=== PATIENT | male | born 1955 | race Caucasian/White ===

== ENCOUNTER 2016-08-11 18:09 | Emergency (ER) | payer SELFPAY ==
[~2016-08-11] VITALS: Ht 167.6 cm; Wt 72.0 kg
[2016-08-11 18:19] VITALS: Ht 167.6 cm; Wt 72.0 kg
[2016-08-11] MEDS ORDERED: ACETAMINOPHEN 500 MG TAB PO STA (19:09)
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
[2016-08-11] MEDS ORDERED: IBUP-1542 PO (20:16)
[2016-08-11] MEDS ORDERED: ACET500C5 PO (20:16)
[2016-08-11 20:23] VITALS: BP 166/90; RESP 18
== END 2016-08-11 20:39 | disposition home or self-care (01) ==
LOC: FTE 18:09
DX: S01.01XA Laceration without foreign body of scalp, initial encounter (principal); R40.2252 Coma scale, best verbal response, oriented, at arrival to emergency department; R07.9 Chest pain, unspecified; R40.2142 Coma scale, eyes open, spontaneous, at arrival to emergency department; R40.2362 Coma scale, best motor response, obeys commands, at arrival to emergency department; V49.40XA Driver injured in collision with unspecified motor vehicles in traffic accident, initial encounter
CPT/HCPCS: 70450; 70486; 71010; 72125

== ENCOUNTER 2016-08-18 12:33 | Emergency (ER) | payer SELFPAY ==
[~2016-08-18] VITALS: Ht 162.6 cm; Wt 72.0 kg
[~2016-08-18 12:33] MED LIST: ACET500C5 PO; IBUP-1542 PO
[2016-08-18 12:37] VITALS: Ht 162.6 cm; Wt 72.0 kg
[2016-08-18] MEDS ORDERED: HYD25 PO (14:50)
[2016-08-18] MEDS ORDERED: HYDROCHLOROTHIAZIDE 12.5 MG CAP PO ONE (15:00)
[2016-08-18 15:16] VITALS: BP 150/74; PULSE 89; RESP 18
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
== END 2016-08-18 15:16 | disposition home or self-care (01) ==
LOC: FTE 12:33
DX: R03.0 Elevated blood-pressure reading, without diagnosis of hypertension (principal)
CPT/HCPCS: 99283